=== PATIENT | female | born 1980 | race Caucasian/White ===

== ENCOUNTER 2019-05-01 05:30 | Day surgery (SDC) | payer BC ==
[~2019-05-01] VITALS: Ht 172.7 cm; Wt 72.6 kg
[2019-05-01] MEDS ORDERED: CEFAZOLIN 2 GM IVPB PREMIX 50 ML IV ONE (07:15)
[2019-05-01] MEDS ORDERED: ONDANSETRON HCL 4 MG/2 ML VIAL IVP PRN (07:45)
[2019-05-01] MEDS ORDERED: fentaNYL CITRATE/PF 100 MCG/2 ML AMP IVP PRN (07:45)
[2019-05-01] MEDS ORDERED: WATER FOR IRRIGATION,STERILE 1,000 ML IRRIG.SOLN IR ONE (09:50)
[2019-05-01] MEDS ORDERED: BUPIVACAINE /PF 0.5% 30 ML VIAL ONE (09:50)
[2019-05-01] MEDS ORDERED: GLYCOPYRROLATE 0.2 MG/ML VIAL ONE (09:50)
[2019-05-01] MEDS ORDERED: NEOSTIGMINE METHYLSULFATE 1 MG/ML, 10 ML VIAL ONE (09:50)
[2019-05-01] MEDS ORDERED: ROPIVACAINE HCL/PF 0.2% EPIDURAL 200 ML PLAST..BAG ONE (09:50)
[2019-05-01] MEDS ORDERED: MIDAZOLAM HCL 5 MG/ML VIAL (VERSED) IV ONE (09:50)
[2019-05-01] MEDS ORDERED: LR 1,000 ML IV.SOLN IV ONE (09:50)
[2019-05-01] MEDS ORDERED: fentaNYL CITRATE/PF 100 MCG/2 ML AMP ONE ×2 (09:50→10:22)
[2019-05-01] MEDS ORDERED: PROPOFOL 200MG/ 20ML VIAL (DIPRIVAN) IV ONE (09:50)
[2019-05-01] MEDS ORDERED: SEVOFLURANE 15 MIN GAS INH ONE (09:50)
[2019-05-01] MEDS ORDERED: BUPIVACAINE /EPINEPHRINE/PF 0.5% 30 ML VIAL INJ ONE (09:50)
[2019-05-01] MEDS ORDERED: ROCURONIUM BROMIDE 10 MG/ML (ZEMURON) ONE (09:50)
[2019-05-01] MEDS ORDERED: LIDOCAINE 2%, 20 ML MDV ONE (09:50)
[2019-05-01] MEDS ORDERED: MORPHINE SULFATE 10 MG/ML VIAL IVP PRN (10:00)
[2019-05-01] MEDS: fentaNYL CITRATE/PF 100 MCG/2 ML AMP IVP PRN ×2 (10:14→10:30)
[2019-05-01] MEDS ORDERED: ONDANSETRON HCL 4 MG/2 ML VIAL ONE (10:19)
[2019-05-01] MEDS ORDERED: HYDROcodone/ACETAMIN 5-325 MG TAB (NORCO/ VICODIN) PO PRN (10:45)
[2019-05-01] MEDS ORDERED: HYDROmorphone 2 MG TAB JT PRN (10:45)
[2019-05-01] MEDS ORDERED: METOCLOPRAMIDE HCL 10 MG/2 ML VIAL IVP ONE (11:00)
[2019-05-01] MEDS ORDERED: METOCLOPRAMIDE HCL 10 MG/2 ML VIAL ONE (11:10)
[2019-05-01] MEDS ORDERED: MEPERIDINE HCL/PF 25 MG/ML DISP.SYRIN IVP PRN (11:15)
[2019-05-01] MEDS ORDERED: MEPERIDINE HCL/PF 25 MG/ML DISP.SYRIN ONE (11:24)
[2019-05-01 11:38] VITALS: BP_SYST 103
[2019-05-01] MEDS ORDERED: HYDROmorphone 2 MG/ML VIAL IVP PRN (12:45)
[2019-05-01] MEDS: ONDANSETRON HCL 4 MG/2 ML VIAL IVP PRN (12:51)
[2019-05-01] MEDS ORDERED: METOCLOPRAMIDE HCL 10 MG/2 ML VIAL IVP PRN (13:30)
[2019-05-01] MEDS ORDERED: PROCHLORPERAZINE EDISYLATE 10 MG/2 ML VIAL IM ONE (14:00)
[2019-05-01] MEDS: HYDROmorphone 1 MG INJ. 1 MG/ML AMPUL IVP PRN ×4 (17:04→23:00)
[2019-05-01] MEDS ORDERED: WITCH HAZEL LEAF 1 MED.PAD MED.PAD TP PRN (17:30)
[2019-05-01] MEDS ORDERED: KETOROLAC TROMETHAMINE 60 MG/2 ML VIAL IM ONE (21:33)
[2019-05-01] MEDS ORDERED: ceFAZolin SODIUM 1 GM VIAL ONE (21:33)
[2019-05-01] MEDS ORDERED: KETOROLAC TROMETHAMINE 60 MG/2 ML VIAL IM SCH (22:00)
[2019-05-01] MEDS ORDERED: chlorproMAZINE HCL 50 MG/ 2 ML AMP IM ONE (23:00)
[2019-05-02] MEDS: KETOROLAC TROMETHAMINE 30 MG VIAL IVP SCH ×2 (03:00→08:32)
[2019-05-02] MEDS ORDERED: ceFAZolin SODIUM 1 GM VIAL ONE (03:19)
[2019-05-02] MEDS: ceFAZolin SODIUM 1 GM in D5W 50 ML IV SCH ×2 (10:45→16:30)
[2019-05-02] MEDS: DOCUSATE SODIUM 100 MG CAPSULE PO PRN ×2 (10:45→16:29)
[2019-05-02] MEDS ORDERED: OXYCODONE/ACETAMINOPHEN 5-325 TABLET ONE (10:57)
[2019-05-02] MEDS: ONDANSETRON HCL 4 MG/2 ML VIAL IVP PRN (13:27)
[2019-05-02] MEDS: OXYCODONE/ACETAMINOPHEN 5-325 TABLET PO PRN ×2 (13:54→16:29)
[2019-05-02] MEDS ORDERED: IBUPROFEN 600 MG TABLET PO SCH (15:00)
[2019-05-02] MEDS ORDERED: SIMETHICONE 80 MG TAB.CHEW PO SCH (17:30)
[2019-05-02] MEDS ORDERED: DOCUSATE SODIUM 100 MG CAPSULE PO SCH (21:00)
== END 2019-05-02 19:00 | disposition home or self-care (01) ==
LOC: SMU 05:30 → SDS 05:30 → SPU 12:23 → SDS 05-02 19:00
PROVIDERS: ATTEND Specialist
DX: R10.2 Pelvic and perineal pain (principal); N81.6 Rectocele; N83.8 Other noninflammatory disorders of ovary, fallopian tube and broad ligament; D64.9 Anemia, unspecified; I83.90 Asymptomatic varicose veins of unspecified lower extremity; N94.89 Other specified conditions associated with female genital organs and menstrual cycle; N94.10 Unspecified dyspareunia
CPT/HCPCS: 36415; 57250; 58552; 64488; 86886; 86900; 86901; 88302; 88307; C1727; J0690 ×3; J0780; J1170; J1885 ×2; J2001; J2175; J2250; J2405 ×2; J2704; J2710; J2765; J3010; J3230; J3490 ×2; J7060; J7120 ×2; E0190